=== PATIENT | male | born 1990 | race Caucasian/White ===

== ENCOUNTER 2017-02-07 11:21 | Emergency (ER) | payer OTHER, SELFPAY ==
[~2017-02-07] VITALS: Ht 180.3 cm; Wt 74.8 kg
[2017-02-07] MEDS ORDERED: ZYRT10TA2 PO (11:28)
[2017-02-07] MEDS ORDERED: KEFL500C7 PO (12:10)
[2017-02-07] MEDS ORDERED: CEPHALEXIN 500 MG CAP PO ONE (12:15)
[2017-02-07 12:18] VITALS: BP 144/89
== END 2017-02-07 12:29 | disposition home or self-care (01) ==
LOC: M ED 12:13
DX: S61.411A Laceration without foreign body of right hand, initial encounter (principal); W25.XXXA Contact with sharp glass, initial encounter; Y92.019 Unspecified place in single-family (private) house as the place of occurrence of the external cause; Y93.G1 Activity, food preparation and clean up; Y99.8 Other external cause status; Z79.899 Other long term (current) drug therapy; Z88.1 Allergy status to other antibiotic agents

== ENCOUNTER 2017-02-21 08:23 | Emergency (ER) | payer OTHER, SELFPAY ==
[~2017-02-21] VITALS: Ht 180.3 cm; Wt 74.8 kg
[~2017-02-21 08:23] MED LIST: KEFL500C7 PO; ZYRT10TA2 PO
[2017-02-21 08:26] VITALS: BP 120/85
[2017-02-21] MEDS ORDERED: PATA2.5S OP (09:20)
[2017-02-21] MEDS ORDERED: FLON1SPR (09:20)
== END 2017-02-21 09:26 | disposition home or self-care (01) ==
LOC: M ED 08:50
DX: Z48.02 Encounter for removal of sutures (principal); J30.2 Other seasonal allergic rhinitis; Z88.0 Allergy status to penicillin